=== PATIENT | male | born 1980 | race Hispanic/Latino ===

== ENCOUNTER 2016-12-12 23:06 | Emergency (ER) | payer BC ==
[~2016-12-12] VITALS: Ht 167.6 cm; Wt 87.0 kg
[2016-12-12] MEDS ORDERED: (None)3.5 GM OD (23:48)
[2016-12-12] MEDS ORDERED: GENTAMICIN15 ML/BTL OS (23:48)
[2016-12-13 00:05] VITALS: BP 113/73
== END 2016-12-13 00:08 | disposition home or self-care (01) | DRG 125 ==
LOC: ED 23:06
DX: T15.01XA Foreign body in cornea, right eye, initial encounter (principal); X58.XXXA Exposure to other specified factors, initial encounter

== ENCOUNTER 2020-06-13 10:12 | Emergency (ER) | payer BC ==
[~2020-06-13] VITALS: Ht 167.6 cm; Wt 80.0 kg
[~2020-06-13 10:12] MED LIST: (None)3.5 GM OD; GENTAMICIN15 ML/BTL OS
[2020-06-13 11:40] VITALS: BP 138/76
== END 2020-06-13 11:40 | disposition home or self-care (01) | DRG 866 ==
LOC: ED 10:12
DX: B34.9 Viral infection, unspecified (principal); Z20.822 Contact with and (suspected) exposure to COVID-19